=== PATIENT | female | born 1995 | race Hispanic/Latino ===

== ENCOUNTER 2018-02-02 09:33 | Emergency (ER) | payer BC ==
[2018-02-02 09:37] VITALS: BMI 31.6
[2018-02-02 11:05] LABS: BASO % 0.3 % (0.0-2.0); EOS # 0.1 K/uL (0.0-0.7); EOS % 1.5 % (0.0-4.0); HEMOGLOBIN 8.9 g/dL (12.0-16.0); LYMPH % 25.3 % (20.0-40.0); MEAN CELL VOLUME 83.2 fl (81.0-99.0); MEAN CORPUSCULAR HEMOGLOBIN 26.9 pg (27.0-31.0); MEAN CORPUSCULAR HGB CONC 32.4 g/dL (33.0-37.0); MEAN PLATELET VOLUME 8.5 fl (7.2-11.7); MONO # 0.5 K/uL (0.0-0.8); MONO % 6.5 % (0.0-10.0); NEUT # 5.3 K/uL (1.8-7.0); NEUT % 66.4 % (50.0-75.0); NRBC % 0.1 % (0.0-0.0); RBC 3.32 Mil/uL (3.80-5.20); RED CELL DISTRIBUTION WIDTH 13.9 % (11.5-14.5); WHITE BLOOD COUNT 7.9 K/uL (4.8-10.8)
[2018-02-02 11:17] LABS: SQUAMOUS EPITHIAL 5 /hpf (0-5); URINE BACTERIA OCC (<OCC); URINE BILIRUBIN NEGATIVE (NEGATIVE); URINE BLOOD NEGATIVE (NEGATIVE); URINE CLARITY SLIGHTY-CLOUDY (Clear); URINE COLOR YELLOW (YELLOW); URINE GLUCOSE (UA) NEG (NEGATIVE); URINE LEUKOCYTE ESTERASE LARGE Leu/uL (Negative); URINE PROTEIN NEGATIVE (NEGATIVE); URINE UROBILINOGEN 0.2-1.0 mg/dL (0.2-1.0)
--- NOTE | 2018-02-02 14:05 | OBHP ---
Datetime: 02/02/2018 10:30 IP Adm Impression: , intrauterine ; No Active Labor; Intact Membranes IP Admit Plan: Observation/Evaluation Admit Comment, IP Provider: 22 yo IUP 29w c/o umbilical pain; back pain; lower abd pain since 4 am. On and off. Not regular freq. No meds taken. care: Dr Gonzalez CP / chart rev'd PMH: denies PSH: denies NKA PSoH Denies smoking/ETOH/Drugs A; IUP at 29w Abd pain - PLAN: discussed with PMD: will check UA; CBC; FFN...also chart rev'd will add HBsAg/VZV I gG (nt done) Abdomen - PN: Normal Back - PN: Normal Neurologic - PN: Normal HEENT - PN: Normal General - PN: Normal FHR - Baseline A Provider: 150 Membranes, Provider: Intact Comments, ACOG Physical Exam: IN NAD Abd sofdt NT Back No CVA tenderness ROS: General: no weakness HEENT: no KHALIL CV: no CP; No SOB : No F/U/D GI: No N/V/D MS: no joint pain Pool Provider: Negative IP Hx Assessment: The History has been Reviewed and is Current EGA AdmitDate IP: 81.2 Vital Signs Provider: Reviewed IP Chief Complaint: Other NICHD Variability Prov Fetus A: Moderate 6-25bpm NICHD Accel Fetus A IP Provider: 15X15 FHR Category Provider Fetus A: Category I NICHD Decel Fetus A IP Provider: None Dilatation, Provider: 0 Genitourinary Exam: Normal
--- NOTE | 2018-02-02 14:07 | OBDCSUM ---
Datetime: 02/02/2018 13:34 Discharged to, Provider: Home Follow up at, Provider: Dr. Gonzalez Disch Instr Activity: Normal activity Disch Instr Diet: Regular Discharge Time: 02/02/2018 13:34 Follow up in weeks, Provider: Next week for next scheduled appt Disch Referrals: None Disch Activity Restrictions: No sexual activity; Nothing in vagina - [place], tampons, douche Discharge Comment, Provider: Labs rev'd with PMD: will discharge home/f/u1w...Macrobid 100mg BID x 7 d given Discharge Diagnosis Prov Other: Musculoskeletal pain; UTI
[2018-02-02 17:53] LABS: HEPATITIS B SURFACE AG Negative (NEGATIVE)
[2018-02-03 12:47] VITALS: BP 108/65; PULSE 90; TEMP 98.5; O2SAT 100
== END 2018-02-02 13:34 | disposition home or self-care (01) ==
LOC: H.EROB2 09:33
DX: O26.93 Pregnancy related conditions, unspecified, third trimester (principal); R10.2 Pelvic and perineal pain; M54.5 Low back pain; Z3A.29 29 weeks gestation of pregnancy

== ENCOUNTER 2018-03-12 12:43 | Emergency (ER) | payer BC ==
[2018-03-12 13:27] VITALS: BMI 31.7
[2018-03-12 13:58] LABS: SQUAMOUS EPITHIAL 22 /hpf (0-5); URINE BACTERIA MOD (<OCC); URINE BILIRUBIN NEGATIVE (NEGATIVE); URINE BLOOD NEGATIVE (NEGATIVE); URINE CLARITY CLOUDY (Clear); URINE COLOR AMBER (YELLOW); URINE GLUCOSE (UA) NEG (NEGATIVE); URINE LEUKOCYTE ESTERASE LARGE Leu/uL (Negative); URINE PROTEIN 30 mg/dL (NEGATIVE)
--- NOTE | 2018-03-12 14:48 | OBHP ---
Datetime: 03/12/2018 14:40 IP Adm Impression: , intrauterine ; No Active Labor IP Chief Complaint Other: back pains IP Adm Impression Other: cystitis IP Admit Plan: Discharge home Admit Comment, IP Provider: SVE no cervical changes and no effacement D/c home on po Macrobid and in creased po fluids and will see in office Thursday Instructions to call immediatly if increase pains, U C ROM bleeding or inceased UC or dec FM Understands and agreed. Extremities - PN: Normal Abdomen - PN: Abnormal Back - PN: Normal Breast - PN: Not Done Lungs - PN: Normal Thyroid - PN: Not Done Neurologic - PN: Not Done HEENT - PN: Not Done General - PN: Normal FHR - Baseline A Provider: 140/150 Membranes, Provider: Intact Contraction Comments Provider: irreg and mild Comments, ACOG Physical Exam: Abd gravid NT Ext no calf tenderness Gestation - Est Wks by US: 34w 4d IP Hx Assessment: The History has been Reviewed and is Current EGA AdmitDate IP: 34.4 IP Chief Complaint: Signs/symptoms UTI NICHD Variability Prov Fetus A: Moderate 6-25bpm NICHD Accel Fetus A IP Provider: 10X10 NICHD Decel Fetus A IP Provider: None Dilatation, Provider: closed Effacement, Provider: none Station, Provider: high Genitourinary Exam: Normal DTRs - PN: Normal
[2018-03-16 11:05] VITALS: PULSE 99; O2SAT 100
== END 2018-03-12 14:35 | disposition home or self-care (01) ==
LOC: H.EROB2 12:43 → H.EROB 12:44 → H.EROB2 14:35
DX: O26.93 Pregnancy related conditions, unspecified, third trimester (principal); M54.9 Dorsalgia, unspecified; Z3A.34 34 weeks gestation of pregnancy

== ENCOUNTER 2018-04-06 12:26 | Emergency (ER) | payer BC ==
--- NOTE | 2018-04-06 13:13 | OBHP ---
Datetime: 04/06/2018 13:00 IP Adm Impression: Term, intrauterine ; No Active Labor; Intact Membranes IP Admit Plan: Observation/Evaluation Admit Comment, IP Provider: 23yo IUP@38w c/o CTX since being examined yesterday. She passed so me mucous with pinkish discharge. No SROM. +FM PNC: Dr Gonzalez : chart rev'd PMH: anemia in preg PSH: denies NKA PSoH: denies smoking ETOH drugs POBGYNH: - hx abnormal PAP A: IUP at 38w latent phase of labor PLAN: will allow to ambualte and re-check for progress Spoke with PMD. agree with management Abdomen - PN: Normal Lungs - PN: Normal Heart - PN: Normal Neurologic - PN: Normal HEENT - PN: Normal General - PN: Normal Presentation-Admit: Vertex FHR - Baseline A Provider: 140 Membranes, Provider: Intact Pool Provider: Negative IP Hx Assessment: The History has been Reviewed and is Current EGA AdmitDate IP: 38.1 IP Chief Complaint: Uterine contractions NICHD Variability Prov Fetus A: Moderate 6-25bpm NICHD Accel Fetus A IP Provider: 15X15 FHR Category Provider Fetus A: Category I NICHD Decel Fetus A IP Provider: None Dilatation, Provider: 1 Effacement, Provider: long Station, Provider:
[2018-04-06 13:51] VITALS: BMI 33.6
--- NOTE | 2018-04-06 15:28 | OBPN ---
Datetime: 04/06/2018 15:19 IP Progress Impression Other: not in labor IP Progress Impression: Reassuring heart rate IP Progress Plan: Discharge Pool Provider: Negative Membranes, Provider: Intact Contraction Comments Provider: very mild and irreg. FHR - Baseline A Provider: 140's Gestation - Est Wks by US: 38.0 IP Progress Note Comment: BPP done at bed side INÉS 15.89cm, + breasthing + tone, + movement and + re active NST Pt ambulated for 2 hrs and no cervical changes or change in UC and discussed with pt will D/C home with instructions and follow up office tomorrow Call immediatly if dec FM, ROM, UC increased pain bleeding etc She u;nderstands and agreed Dilatation, Provider: 1cm Effacement, Provider: 10-20 Station, Provider: Claire BRAGGD Decel Fetus A IP Provider: None Datetime: 04/06/2018 13:00 Presentation-Admit: Vertex NICHD Accel Fetus A IP Provider: 15X15 FHR Category Provider Fetus A: Category I NICHD Variability Prov Fetus A: Moderate 6-25bpm Datetime: 02/02/2018 10:30 Vital Signs Provider: Reviewed
[2018-04-06 19:40] VITALS: BP 132/72; PULSE 92; RESP 16; TEMP 98; O2SAT 97
[2018-04-07] MEDS ORDERED: Lactated Ringer's 1,000 ML IV ONE (20:47)
[2018-04-07] MEDS ORDERED: Lactated Ringer's 1,000 ML IV SCH (21:00)
== END 2018-04-06 15:30 | disposition home or self-care (01) ==
LOC: H.EROB2 12:26 → H.L&D 12:27 → H.EROB2 15:30 → H.L&D 04-07 21:13 → UNDOADMIN 04-07 21:13
DX: O26.93 Pregnancy related conditions, unspecified, third trimester (principal); R10.2 Pelvic and perineal pain; Z3A.38 38 weeks gestation of pregnancy

== ENCOUNTER 2018-04-07 20:05 | Inpatient (IN) | payer BC ==
[2018-04-07] MEDS ORDERED: Lactated Ringer's 1,000 ML IV ONE (21:13)
[2018-04-07] MEDS ORDERED: Lactated Ringer's 1,000 ML IV SCH (21:15)
[2018-04-07 21:57] LABS: BASO % 0.5 % (0.0-2.0); EOS # 0.1 K/uL (0.0-0.7); EOS % 1.4 % (0.0-4.0); HEMOGLOBIN 7.9 g/dL (12.0-16.0); LYMPH % 22.9 % (20.0-40.0); MEAN CELL VOLUME 71.4 fl (81.0-99.0); MEAN CORPUSCULAR HEMOGLOBIN 22.3 pg (27.0-31.0); MEAN CORPUSCULAR HGB CONC 31.3 g/dL (33.0-37.0); MONO # 0.7 K/uL (0.0-0.8); MONO % 8.2 % (0.0-10.0); NEUT # 5.9 K/uL (1.8-7.0); NRBC % 0.1 % (0.0-0.0); RBC 3.52 Mil/uL (3.80-5.20); RED CELL DISTRIBUTION WIDTH 17.8 % (11.5-14.5); WHITE BLOOD COUNT 8.8 K/uL (4.8-10.8)
--- NOTE | 2018-04-07 22:14 | OBADHP ---
Datetime: 04/07/2018 22:07 Admit Comment, IP Provider: will admit to unit and augument Discussed with pt and understands and ag jose cruz Extremities - PN: Normal Abdomen - PN: Abnormal Back - PN: Normal Breast - PN: Not Done Lungs - PN: Normal Thyroid - PN: Not Done Neurologic - PN: Not Done HEENT - PN: Normal General - PN: Normal Presentation-Admit: cephalic FHR - Baseline A Provider: 150's Membranes, Provider: Intact Contraction Comments Provider: irreg Comments, ACOG Physical Exam: ABd gravid NT fundus at term, ext no calf tenderness Gestation - Est Wks by US: 38 wks IP Hx Assessment: The History has been Reviewed and is Current IP Chief Complaint: Uterine contractions; Decreased movement NICHD Variability Prov Fetus A: Moderate 6-25bpm NICHD Accel Fetus A IP Provider: Prolonged Dilatation, Provider: 2cm Effacement, Provider: 40 Station, Provider: -2 Genitourinary Exam: Normal DTRs - PN: Normal EGA AdmitDate IP: 38.2 IP Adm Impression: Term, intrauterine IP Admit Plan: Admit to unit; Initiate labor augmentation protocol Datetime: 04/06/2018 15:19 Pool Provider: Negative NICHD Decel Fetus A IP Provider: None Datetime: 04/06/2018 13:00 Heart - PN: Normal FHR Category Provider Fetus A: Category I Datetime: 03/12/2018 14:40 IP Chief Complaint Other: back pains IP Adm Impression Other: cystitis Datetime: 02/02/2018 10:30 Vital Signs Provider: Reviewed
[2018-04-08] MEDS ORDERED: Fentanyl/Bupivacaine HCl 250 ML EPI ONE (06:39)
[2018-04-08] MEDS: Lactated Ringer's 1,000 ML IV SCH ×4 (08:10→20:52)
[2018-04-08] MEDS ORDERED: Bupivacaine HCl 0.5% PF (30 ml) Inj ONE (13:43)
[2018-04-08 18:32] LABS: RAPID PLASMA REAGIN NONREACTIVE (NONREACTIVE)
--- NOTE | 2018-04-09 00:06 | OBPN ---
Datetime: 04/09/2018 00:00 IP Progress Impression: Reactive non-stress test IP Procedures: Artificial ROM IP Progress Plan: Augmentation Membranes, Provider: Intact Contraction Comments Provider: q2-3 mins FHR - Baseline A Provider: 140's Gestation - Est Wks by US: 38+ Presentation-Admit: cephalic IP Progress Note Comment: Cervidil removed and AROM done clear fluid noted, will start on Pitocin NICHD Variability Prov Fetus A: Moderate 6-25bpm Dilatation, Provider: 3-4 Effacement, Provider: 60 Station, Provider: -2 NICHD Decel Fetus A IP Provider: None Datetime: 04/07/2018 22:07 NICHD Accel Fetus A IP Provider: Prolonged
[2018-04-09] MEDS ORDERED: Oxytocin 30 UNIT 30 UNITS/500 ML BAG IV ONE ×2 (00:11→05:32)
[2018-04-09] MEDS: Lactated Ringer's 1,000 ML IV SCH (00:53)
[2018-04-09] MEDS ORDERED: Fentanyl/Bupivacaine HCl 250 ML EPI ONE (01:36)
[2018-04-09] MEDS ORDERED: Lidocaine 2% PF (10 ml) Amp ONE (02:58)
[2018-04-09] MEDS ORDERED: Lidocaine 1% MPF (30 ml) Inj ONE (03:59)
[2018-04-09] MEDS ORDERED: Benzocaine/Menthol SPRAY TOP PRN (05:32)
[2018-04-09] MEDS ORDERED: Oxycodone/Acetaminophen 5/325 mg Tab PO PRN (05:32)
[2018-04-09] MEDS ORDERED: OXYTOCIN/0.9 % NS 20 UNIT/1,000 ML BAG IV ONE (05:32)
--- NOTE | 2018-04-09 05:32 | OBDS ---
MATERNAL INFORMATION Estimated Blood Loss (ml): 250 Provider Comments: Delivered a living baby girl appears term but LGA cried spontaneously 9/9, AF clear Placenta delivered complete and intact Episiotomy repaired as above no complications Uterus contracted well. Rectal done no defects Tolerated procedure well. LABOR SUMMARY EDC: 04/19/2018 00:00 No. Babies in Womb: 1 LABOR INFORMATION Reason for Induction: Other Reason for Induction Other: decreased FM/ cervical changes Cervical Ripening Agents: Cervidil Group B Beta Strep: Negative Steroids Given: None Reason Steroids Not Administered: Not Applicable MEMBRANES Membranes Rupture Method: Artificial Rupture of Membranes: 04/09/2018 23:56 Amniotic Fluid Color: Clear Amniotic Fluid Amount: Large Amniotic Fluid Odor: None VAGINAL DELIVERY Episiotomy: Median Laceration Extension: Second Degree Laceration Type: None Laceration Repair: Yes Laceration Repair Note: a midline 1srt to 2nd dg episiotomy done and repaired with 2-0 chromic inter rupted for deep tissues and continuously for vagina and perineum No complications. Sponge Count Correct: Yes Sharps Count Correct: Yes Count Comment: count correct and verified by RN CSECTION DELIVERY Primary Indication: N/A Secondary Indication: N/A CSection Incision: N/A Uterine Closure: N/A
[2018-04-09 21:26] LABS: BASO % 0.2 % (0.0-2.0); EOS % 0.2 % (0.0-4.0); LYMPH # 1.7 K/uL (1.0-4.3); LYMPH % 15.2 % (20.0-40.0); MEAN CELL VOLUME 70.6 fl (81.0-99.0); MEAN CORPUSCULAR HEMOGLOBIN 22.3 pg (27.0-31.0); MEAN CORPUSCULAR HGB CONC 31.6 g/dL (33.0-37.0); MEAN PLATELET VOLUME 8.2 fl (7.2-11.7); MONO # 0.9 K/uL (0.0-0.8); MONO % 7.7 % (0.0-10.0); NEUT # 8.5 K/uL (1.8-7.0); NEUT % 76.7 % (50.0-75.0); RBC 2.37 Mil/uL (3.80-5.20); RED CELL DISTRIBUTION WIDTH 17.6 % (11.5-14.5)
[2018-04-09 21:42] LABS: HEMOGLOBIN 5.3 g/dL (12.0-16.0)
[2018-04-10 11:32] LABS: BASO # 0.1 K/uL (0.0-0.2); BASO % 0.6 % (0.0-2.0); EOS # 0.1 K/uL (0.0-0.7); HEMOGLOBIN 7.7 g/dL (12.0-16.0); LYMPH # 2.4 K/uL (1.0-4.3); LYMPH % 18.9 % (20.0-40.0); MEAN CELL VOLUME 73.2 fl (81.0-99.0); MEAN CORPUSCULAR HEMOGLOBIN 23.5 pg (27.0-31.0); MEAN CORPUSCULAR HGB CONC 32.1 g/dL (33.0-37.0); MEAN PLATELET VOLUME 8.2 fl (7.2-11.7); MONO # 0.7 K/uL (0.0-0.8); MONO % 5.5 % (0.0-10.0); NEUT # 9.4 K/uL (1.8-7.0); NRBC % 0.1 % (0.0-0.0); RBC 3.29 Mil/uL (3.80-5.20); RED CELL DISTRIBUTION WIDTH 20.4 % (11.5-14.5); WHITE BLOOD COUNT 12.7 K/uL (4.8-10.8)
--- NOTE | 2018-04-10 13:51 | OBPPN ---
Datetime: 04/10/2018 13:45 PP Pain Prov: Within normal limits PP Nausea Prov: Denies PP Flatus Prov: No PP BM Prov: No PP Breasts Prov: Normal PP Heart Prov: Normal PP Lungs Prov: Normal PP Abdomen/Uterus Prov: Normal PP Lochia Prov: Normal PP Vulva/Perineum Prov: Normal PP CVA Tenderness Prov: Normal PP Extremities Prov: Normal PP Progress Prov: Normal PP Impression Prov: Normal progression PP Plan Prov: Continue present management PP Progress Note Prov: stable ppd1 ,no complaints oob with assistance,encourage ambulation,may showe r,transfusion done successfully h/h 7.7/24.1,plt 219 IP PP Procedures: None Vital Signs Provider PP: Reviewed; Within Normal Limits
--- NOTE | 2018-04-11 12:09 | OBPPN ---
Datetime: 04/11/2018 12:04 PP Pain Prov: Within normal limits PP Pain Prov comment: No SOB, chest or leg pains PP Nausea Prov: Denies PP Flatus Prov: Yes PP Nausea Prov comment: Voiding well PP Flatus Prov comment: No dizziness or weakness PP BM Prov comment: No C/F PP Breasts Prov: Normal PP Lungs Prov: Normal PP Abdomen/Uterus Prov: Abnormal PP Lochia Prov: Normal PP Vulva/Perineum Prov: Abnormal PP CVA Tenderness Prov: Normal PP Extremities Prov: Abnormal PP C/S Incision Prov: Not Applicable PP Progress Prov: Normal PP Comments Phys Exam Prov: breast not engorged NT, brt feeding; Abd soft not distended fundus firm below the umb NT, Perineum repaired Ext no calf tenderness but [place] minimal pedal edema. PP Impression Prov: Normal progression PP Plan Prov: Discharge PP Progress Note Prov: CBC post transfusion stable, pt now asymptomatic, will D/C home with instruct ion and follow up office 2 wks. IP PP Procedures: None Vital Signs Provider PP: Reviewed
--- NOTE | 2018-04-11 12:12 | OBDCSUM ---
Datetime: 04/11/2018 12:09 Discharged to, Provider: Home Follow up at, Provider: Dr Gonzalez Disch Instr Activity: Bedrest; May be up to bathroom; May be up for meals; May Shower Disch Instr Diet: Regular Discharge Instructions, Provider: Routine instructions given Discharge Diagnosis, Provider: Term Delivered Discharge Time: 04/11/2018 12:09 Follow up in weeks, Provider: 2 wks Disch Referrals: None Contraception discussed, Prov: Yes Disch Activity Restrictions: No exercising; No lifting; No driving; Minimize walking; Minimize stair -climbing; No sexual activity; Nothing in vagina - [place], tampons, douche Discharge Comment, Provider: Continue PNC vit and iron and sitz bath tid Discharge Diagnosis Prov Other: severe anemia Contraception after Delivery: Undecided
[2018-04-11 19:09] VITALS: BP 123/69; PULSE 69; RESP 20; TEMP 97.8; O2SAT 97
== END 2018-04-11 14:48 | disposition home or self-care (01) | DRG 807 ==
LOC: H.L&D 21:13 → H.OB/GYN 04-09 08:36
PROVIDERS: ADMIT Specialist; ATTEND Specialist
PROC: 4A1HXCZ Monitoring of Products of Conception, Cardiac Rate, External Approach (ICD-10-PCS; 2018-04-07)
PROC: 10E0XZZ Delivery of Products of Conception, External Approach (ICD-10-PCS; principal; 2018-04-09)
PROC: 0W8NXZZ Division of Female Perineum, External Approach (ICD-10-PCS; 2018-04-09)
DX: O36.8130 Decreased fetal movements, third trimester, not applicable or unspecified (principal); Z37.0 Single live birth; O36.63X0 Maternal care for excessive fetal growth, third trimester, not applicable or unspecified; O99.02 Anemia complicating childbirth; Z3A.38 38 weeks gestation of pregnancy; O70.1 Second degree perineal laceration during delivery